=== PATIENT | male | born 1980 | race Caucasian/White ===

== ENCOUNTER 2022-09-04 07:40 | Outpatient (CLI) | payer OTHER, SELFPAY | END 2022-09-04 07:41 | disposition home or self-care (01) | LOC: NFLDREF 12:03 | PROVIDERS: PCP Family Medicine; Referring Provider Family Medicine; Visit Provider Family Medicine | DX: E78.5 Hyperlipidemia, unspecified (principal) | CPT/HCPCS: 80053; 80061 ==

== ENCOUNTER 2024-02-12 07:44 | Outpatient (CLI) | payer BC, SELFPAY | END 2024-02-12 07:45 | disposition home or self-care (01) | LOC: NFLDREF 12:47 | PROVIDERS: PCP Family Medicine; Referring Provider Family Medicine; Visit Provider Family Medicine | DX: E78.5 Hyperlipidemia, unspecified (principal); R53.83 Other fatigue | CPT/HCPCS: 80053; 80061 ==

== ENCOUNTER 2024-04-26 07:27 | Outpatient (CLI) | payer BC, SELFPAY | END 2024-04-26 07:28 | disposition home or self-care (01) | LOC: NFLDREF 04-29 03:27 | PROVIDERS: PCP Family Medicine; Referring Provider Family Medicine; Visit Provider Family Medicine | DX: R53.83 Other fatigue (principal); E78.5 Hyperlipidemia, unspecified | CPT/HCPCS: 80053; 80061; 84443 ==